=== PATIENT | male | born 1945 | race Asian ===

== ENCOUNTER 2020-07-05 13:43 | Emergency (ER) | payer MEDICARE, SELFPAY ==
[~2020-07-05] VITALS: Ht 162.6 cm; Wt 79.4 kg
[2020-07-05 13:43] VITALS: BP_SYST 115
[~2020-07-05 13:43] MED LIST: JUNUVIA; METFORMIN; NEBI2.5T2; ZONI25CA
--- NOTE | 2020-07-05 13:43 | NUR ---
BROUGHT IN BY [facility], PLACED IN BED #2 AND TRIAGED. REPORT GIVEN TO ZEFERINO
--- NOTE | 2020-07-05 13:50 | NUR ---
Patient presented to ER C/O SOB Patient BIB BLS to ER, A&Ox4, afebrile, denies pain, denies N/V/D, pulse-ox 97%. will continue to monitor. Patient states he felt eak and SOB after morning shower. Patient is "staying with sister in [place] for safety" after discharge yesterday from [facility].
[2020-07-05 14:23] LABS: BASOPHILS # (AUTO) 0.1 K/uL (0.0-0.2); BASOPHILS % (AUTO) 0.7 % (0.0-2.0); EOSINOPHILS # (AUTO) 0.2 K/uL (0.0-0.4); EOSINOPHILS % (AUTO) 2.3 % (0.0-4.0); HEMATOCRIT 42.3 % (36-54); HEMOGLOBIN 13.7 g/dL (14.0-18.0); LYMPHOCYTES # (AUTO) 0.9 K/uL (1.0-5.5); LYMPHOCYTES % (AUTO) 10.5 % (20.5-51.5); MEAN CORPUSCULAR HEMOGLOBIN 28 pg (27-31); MEAN CORPUSCULAR HGB CONC 33 % (32-36); MEAN CORPUSCULAR VOLUME 86 fL (79.0-98.0); MONOCYTES % (AUTO) 10.9 % (1.7-9.3); NEUTROPHILS # (AUTO) 6.8 K/uL (1.8-7.7); NEUTROPHILS % (AUTO) 75.6 % (40.0-70.0); PLATELET COUNT (AUTO) 299 K/uL (130-430); RED BLOOD CELL COUNT(AUTO) 4.93 MIL/uL (4.2-6.2)
[2020-07-05 14:29] LABS: ANION GAP 9 (5-15); CALCIUM 8.9 mg/dL (8.4-11.0); CHLORIDE 100 mmol/L (98-107); CREATININE 1.35 mg/dL (0.55-1.30); GLUCOSE 362 mg/dL (70-99); SODIUM SERUM 133 mmol/L (136-145); UREA NITROGEN, BLOOD 28 mg/dL (8-21)
[2020-07-05 14:36] LABS: ALANINE AMINOTRANSFERASE 16 U/L (12-78); ALBUMIN 3.2 g/dL (3.4-4.8); ASPARTATE AMINOTRANSFERASE 18 U/L (10-37); TOTAL BILIRUBIN 0.7 mg/dL (0.0-1.0)
--- NOTE | 2020-07-05 14:45 | NUR ---
ER at bedside examining patient.
--- NOTE | 2020-07-05 15:10 | NUR ---
Report to Dennise RONQUILLO
--- NOTE | 2020-07-05 15:11 | NUR ---
Dr. Altman, [facility] Doc, called back to speak to Dr. Sheppard regarding pt status. Addendum: 07/05/20 at 1519 by MELE Will wait for more results pending pt discharge or admission. AUTH #: [id number]
--- NOTE | 2020-07-05 15:44 | NUR ---
Dr. Sheppard at bedside discussing results
[2020-07-05 16:10] VITALS: BP_SYST 117
--- NOTE | 2020-07-05 16:10 | NUR ---
Patient given written and verbal discharge instructions and verbalizes understanding. ER MD discussed with patient the results and treatment provided. Patient in stable condition. ID arm band removed. IV catheter removed intact and dressing applied, no active bleeding. No Rx given. Patient educated on pain management and to follow up with PMD. Pain Scale 0/10 Opportunity for questions provided and answered.
== END 2020-07-05 16:10 | disposition home or self-care (01) ==
LOC: SED 13:43
DX: R06.02 Shortness of breath (principal); I10 Essential (primary) hypertension; E11.9 Type 2 diabetes mellitus without complications; Z86.73 Personal history of transient ischemic attack (TIA), and cerebral infarction without residual deficits
CPT/HCPCS: 36415; 71045; 80053; 82550-TC; 83880; 84484; 85025; 85379; 93005; 99285

== ENCOUNTER 2020-07-18 14:29 | Emergency (ER) | payer MEDICARE, SELFPAY ==
[~2020-07-18] VITALS: Ht 162.6 cm; Wt 63.5 kg
--- NOTE | 2020-07-18 14:30 | NUR ---
Placed in room 1 . Placed on park guide, blood pressure machine and pulse oximeter. To gown for exam. Side rails up.
--- NOTE | 2020-07-18 14:35 | NUR ---
Pt bib EMS from home with c/o generalized weakness and hypotension. Reports h/o of a-fib. V/S currently stable, pt is afebrile. Currently resting in bed, will continue to monitor.
[2020-07-18 14:41] VITALS: BP_SYST 97
--- NOTE | 2020-07-18 14:50 | NUR ---
ER Dr. Chen at bedside examining patient.
--- NOTE | 2020-07-18 15:00 | NUR ---
Radiology at bedside for CXR.
--- NOTE | 2020-07-18 15:13 | NUR ---
Lab at bedside for blood draw.
[2020-07-18 15:51] LABS: BASOPHILS # (AUTO) 0.1 K/uL (0.0-0.2); BASOPHILS % (AUTO) 0.7 % (0.0-2.0); EOSINOPHILS # (AUTO) 0.1 K/uL (0.0-0.4); HEMATOCRIT 42.1 % (36-54); HEMOGLOBIN 13.5 g/dL (14.0-18.0); LYMPHOCYTES # (AUTO) 1.4 K/uL (1.0-5.5); LYMPHOCYTES % (AUTO) 12.9 % (20.5-51.5); MEAN CORPUSCULAR HEMOGLOBIN 28 pg (27-31); MEAN CORPUSCULAR HGB CONC 32 % (32-36); MEAN CORPUSCULAR VOLUME 86 fL (79.0-98.0); MONOCYTES # (AUTO) 0.9 K/uL (0.0-1.0); MONOCYTES % (AUTO) 8.5 % (1.7-9.3); NEUTROPHILS # (AUTO) 8.1 K/uL (1.8-7.7); NEUTROPHILS % (AUTO) 76.9 % (40.0-70.0); PLATELET COUNT (AUTO) 295 K/uL (130-430); RED BLOOD CELL COUNT(AUTO) 4.87 MIL/uL (4.2-6.2); RED CELL DISTRIBUTION WIDTH 13.2 % (9.0-15.0); WHITE BLOOD COUNT (AUTO) 10.6 K/uL (4.8-10.8)
[2020-07-18 15:58] LABS: ANION GAP 11 (5-15); CALCIUM 8.6 mg/dL (8.4-11.0); CHLORIDE 104 mmol/L (98-107); POTASSIUM 5.1 mmol/L (3.5-5.1); SODIUM SERUM 137 mmol/L (136-145)
[2020-07-18 16:07] LABS: ALANINE AMINOTRANSFERASE 28 U/L (12-78); ALBUMIN 3.1 g/dL (3.4-4.8); ASPARTATE AMINOTRANSFERASE 22 U/L (10-37); CREATININE 1.34 mg/dL (0.55-1.30); GLUCOSE 217 mg/dL (70-99); TOTAL BILIRUBIN 0.9 mg/dL (0.0-1.0); UREA NITROGEN, BLOOD 42 mg/dL (8-21)
[2020-07-18 16:29] LABS: INR 1.3 (0.80-1.20); PROTHROMBIN TIME 13.6 SECS (9.5-12.5)
[2020-07-18] MEDS ORDERED: PIPERACILLIN/TAZO 3.375 GM in NS 50 ML IV ONE (16:30)
[2020-07-18] MEDS ORDERED: ASPIRIN 81 MG TAB.CHEW PO ONE (16:30)
[2020-07-18] MEDS ORDERED: NACL 0.9% 1,000 ML IV ONE (16:30)
--- NOTE | 2020-07-18 16:52 | NUR ---
Dr. Moody, [place] Doc, paged back to speak to Dr. Tatum regarding pt status.
[2020-07-18] MEDS ORDERED: PIPERACILLIN/TAZOBACTAM 3.375 GM/VIAL (ZOSYN) IV ONE (17:03)
--- NOTE | 2020-07-18 17:27 | NUR ---
urine collected and sent to lab
[2020-07-18 18:19] LABS: BILIRUBIN,URINE NEGATIVE (NEGATIVE); BLOOD, URINE NEGATIVE (NEGATIVE); CLARITY/URINE CLEAR (CLEAR); COLOR,URINE YELLOW (YELLOW); GLUCOSE,URINE 3+ (NEGATIVE); KETONES,URINE 1+ (NEGATIVE); LEUKOCYTE ESTERASE ,URINE NEGATIVE (NEGATIVE); NITRITE, URINE NEGATIVE (NEGATIVE); PH,URINE 6.5 (5.0-8.0); PROTEIN URINE NEGATIVE (NEGATIVE); UROBILINOGEN,URINE 0.2 (0.2-1.0)
--- NOTE | 2020-07-18 19:04 | NUR ---
Care of patient endorsed to SHIMA Ortega. Pt currently resting in bed, no distress noted.
--- NOTE | 2020-07-18 19:25 | NUR ---
Given report to SHIMA Trevino ([facility])
--- NOTE | 2020-07-18 19:30 | NUR ---
Patient to be transferred to [facility]. Is being transferred due to higher level of care. Receiving facility has accepting physician and available space. ER physician has signed transfer form. Patient or responsible democrat has agreed to transfer and signed form. Patient belongings inventoried and will be sent with patient. Copy of nursing notes, lab reports, EKG, Physicians Orders and X-rays to be sent with patient. Report called to HSIMA Trevino at receiving facility. Receiving physician is Fidel Brown. [facility] ambulance service has been called for transfer. ETA is 1 hour.
--- NOTE | 2020-07-18 19:35 | NUR ---
Patient signed consent form to transfer.
[2020-07-18 20:20] VITALS: BP_SYST 104
--- NOTE | 2020-07-18 20:20 | NUR ---
Patient will transfer to [facility] via [facility] by BLS/EMS.
== END 2020-07-18 20:20 | disposition short-term general hospital (02) ==
LOC: SED 14:29
DX: E86.0 Dehydration (principal); R53.1 Weakness; R77.8 Other specified abnormalities of plasma proteins; I10 Essential (primary) hypertension; E11.9 Type 2 diabetes mellitus without complications; I48.91 Unspecified atrial fibrillation; Z79.899 Other long term (current) drug therapy
CPT/HCPCS: 36415; 71045; 80053; 81003; 83605; 83880; 84484; 85025; 85379; 85610; 85730; 87040; 87426; 93005; 96365; 99285; J2543; J7030